=== PATIENT | male | born 1985 | race Two or more races ===

== ENCOUNTER 2024-09-25 08:47 | Emergency (ER) | payer OTHER ==
[~2024-09-25] VITALS: Ht 167.6 cm; Wt 68.0 kg
[2024-09-25] MEDS ORDERED: ONDANSETRON HCL/PF 4 MG/2 ML VIAL ONE (09:17)
[2024-09-25] MEDS ORDERED: MORPHINE SULFATE INJ 4 MG/ML DISP.SYRIN ONE ×2 (09:17→11:12)
[2024-09-25] MEDS: ONDANSETRON HCL/PF 4 MG/2 ML VIAL IVP ONE (09:24)
[2024-09-25] MEDS: MORPHINE SULFATE INJ 2 MG/ML DISP.SYRIN IV ONE ×2 (09:24→11:19)
[2024-09-25 09:35] LABS: BASOPHILS # (AUTO) 0.1 K/uL (0.0-0.2); EOSINOPHILS # (AUTO) 0.1 K/uL (0.0-0.7); EOSINOPHILS % (AUTO) 1.3 % (0.0-6.0); HEMATOCRIT 46 % (39-51); HEMOGLOBIN 15.7 g/dL (13.5-17.5); LYMPHOCYTES # (AUTO) 2.6 K/uL (0.8-4.8); MEAN CORPUSCULAR HEMOGLOBIN 31 PG (26.0-33.0); MEAN CORPUSCULAR HGB CONC 34 g/dl (31.0-36.0); MEAN CORPUSCULAR VOLUME 90 fL (80-96); MONOCYTES # (AUTO) 0.8 K/uL (0.1-1.30); MONOCYTES % (AUTO) 8.1 % (2.0-12.0); NEUTROPHILS # (AUTO) 6.1 K/uL (1.8-8.9); NEUTROPHILS % (AUTO) 62.6 % (43.0-81.0); PLATELET COUNT (AUTO) 207 K/uL (150-450); RED BLOOD CELL COUNT(AUTO) 5.11 MIL/uL (4.5-6.0); RED CELL DISTRIBUTION WIDTH 14.1 % (11.5-15.0); WHITE BLOOD COUNT (AUTO) 9.7 K/uL (4.3-11.0)
[2024-09-25 09:40] LABS: CALCIUM, SERUM 9.9 mg/dL (8.5-10.1); POTASSIUM 3.4 mmol/L (3.5-5.1)
[2024-09-25 09:48] LABS: ALBUMIN 4.1 g/dL (3.4-5.0); BILIRUBIN,DIRECT 0.1 mg/dL (0.0-0.2); BILIRUBIN,TOTAL 0.4 mg/dL (0.2-1.0); TOTAL PROTEIN, SERUM 7.9 g/dL (6.4-8.2)
[2024-09-25 09:54] LABS: APPEARANCE,URINE CLEAR (CLEAR); BILIRUBIN,URINE NEGATIVE (NEGATIVE); BLOOD, URINE 2+ Ery/uL (NEGATIVE); COLOR,URINE YELLOW (YELLOW); KETONES,URINE TRACE mg/dL (NEGATIVE); LEUKOCYTE ESTERASE ,URINE NEGATIVE (NEGATIVE); NITRITE, URINE NEGATIVE (NEGATIVE); PH,URINE 8.5 (5.0-8.0); PROTEIN,URINE 1+ mg/dl (NEGATIVE); UGLUCOSE TRACE mg/dL (NEGATIVE); UROBILINOGEN,URINE 0.2 EU/dL (0.2)
[2024-09-25 09:58] LABS: ADD URINE CULTURE NO; BACTERIA,URINE Few /HPF (None Seen); MUCUS,URINE Few /LPF (None Seen); RBC,URINE 21-50 /HPF (0-2)
[2024-09-25] MEDS ORDERED: IV NS 0.9% 250 ML IV ONE (10:43)
[2024-09-25] MEDS ORDERED: IOHEXOL-300 100 ML VIAL IV ONE (10:43)
[2024-09-25] MEDS ORDERED: KETOROLAC TROMETHAMINE 15 MG/ML VIAL ONE (11:11)
[2024-09-25] MEDS: KETOROLAC TROMETHAMINE 15 MG/ML VIAL IV ONE (11:19)
[2024-09-25] MEDS ORDERED: NAPR-1009 PO (12:03)
[2024-09-25] MEDS ORDERED: ONDA4TAB11 PO (12:03)
[2024-09-25] MEDS ORDERED: TAMS-12 PO (12:03)
[2024-09-25] MEDS ORDERED: ACET-2605 PO (12:03)
[2024-09-25] MEDS ORDERED: TAMSULOSIN 0.4 MG CAP.SR.24H ONE (12:04)
[2024-09-25] MEDS: IV NS 0.9% 1,000 ML BAG IV ONE (12:11)
[2024-09-25] MEDS: TAMSULOSIN 0.4 MG CAP.SR.24H PO ONE (12:11)
[2024-09-25 12:49] VITALS: BP 165/109; TEMP 98.5; O2SAT 100
== END 2024-09-25 12:49 | disposition home or self-care (01) ==
LOC: ER 08:47
DX: N20.2 Calculus of kidney with calculus of ureter (principal); I10 Essential (primary) hypertension; K21.9 Gastro-esophageal reflux disease without esophagitis
CPT/HCPCS: 99285; 74177; 96374; 96375; 96361; 96376; 85025; 80048; 83690; 80076; 81001; 36415; J1885; J2270 ×2; J2405; J7030; J7050; Q9967